=== PATIENT | female | born 1995 | race Caucasian/White ===

== ENCOUNTER → 2019-08-01 | Outpatient (CLI) | payer OTHER ==
[~2019-08-01] VITALS: Ht 165.1 cm; Wt 77.1 kg
[2019-08-01 14:53] LABS: BASO % 0 % (0-3); EOS # 0.1 x10^3/uL (0.0-0.7); EOS % 1 % (0-3); HEMATOCRIT 34.4 % (36.0-47.0); HEMOGLOBIN 11.7 g/dL (12.0-15.5); LYMPH % 19 % (24-48); MEAN CORPUSCULAR HEMOGLOBIN 28 pg (25-35); MEAN CORPUSCULAR HGB CONC 34 g/dL (31-37); MEAN CORPUSCULAR VOLUME 82 fL (79-100); MONO # 0.7 x10^3/uL (0.0-1.1); MONO % 6 % (0-9); NEUT # 7.8 x10^3/uL (1.8-7.7); NEUT % 74 % (31-73); PLATELET COUNT 235 x10^3/uL (140-400); RED CELL DISTRIBUTION WIDTH 13.6 % (11.5-14.5); WHITE BLOOD COUNT 10.6 x10^3/uL (4.0-11.0)
[2019-08-01 15:44] VITALS: BP 110/68
== END | disposition home or self-care (01) ==
LOC: LAB 14:22
PROVIDERS: ATTEND Obstetrics & Gynecology
DX: O09.92 Supervision of high risk pregnancy, unspecified, second trimester (principal); Z67.31 Type AB blood, Rh negative; Z3A.27 27 weeks gestation of pregnancy
CPT/HCPCS: 36415; 82950; 85025; 86850; 86900; 86901; 96372; J2791

== ENCOUNTER 2019-09-25 22:26 | Observation (INO) | payer OTHER ==
[2019-08-01 15:44] VITALS: BP 110/68
[2019-09-25] MEDS ORDERED: IV RINGERS,LACTATED 1000ML 1,000 ML IV PRN ×2 (22:30)
[2019-09-25] MEDS ORDERED: 0.9 % SODIUM CHLORIDE 10 ML DISP.SYRIN. IV PRN (22:30)
[2019-09-25] MEDS ORDERED: ACETAMINOPHEN 325 MG TABLET. PO PRN (22:30)
[2019-09-25 22:50] LABS: BILIRUBIN,URINE NEGATIVE (NEG); CLARITY,URINE HAZY; COLOR,URINE YELLOW; NITRITE,URINE NEGATIVE (NEG); PH,URINE 6.5 (<5.0-8.0); PROTEIN,URINE NEGATIVE (NEG-TRACE)
[2019-09-25 22:54] LABS: BACTERIA,URINE MANY /HPF (0-FEW); RBC,URINE OCC /HPF (0-2); SQUAMOUS EPITHELIAL CELL,UR MOD /LPF; WBC,URINE >40 /HPF (0-4)
[2019-09-25 23:01] LABS: BARBITURATES NEG (NEG); BENZODIAZEPINES NEG (NEG); CANNABINOIDS POS (NEG); COCAINE NEG (NEG); METHADONE NEG (NEG); OPIATES NEG (NEG); PHENCYCLIDINE NEG (NEG)
[2019-09-25 23:07] LABS: AMPHETAMINE/METHAMPHETAMINE NEG (NEG)
== END 2019-09-26 01:00 | disposition home or self-care (01) ==
LOC: 3 SO LND 22:26
PROVIDERS: ADMIT Obstetrics & Gynecology; ATTEND Obstetrics & Gynecology
DX: O36.8130 Decreased fetal movements, third trimester, not applicable or unspecified (principal); O26.893 Other specified pregnancy related conditions, third trimester; N89.8 Other specified noninflammatory disorders of vagina; R10.30 Lower abdominal pain, unspecified; Z3A.34 34 weeks gestation of pregnancy; Z79.899 Other long term (current) drug therapy
CPT/HCPCS: 80307; 81001; 87086; G0378; G0379

== ENCOUNTER 2019-10-22 03:07 | Inpatient (IN) | payer OTHER ==
[~2019-10-22] VITALS: Ht 167.6 cm; Wt 104.8 kg
[2019-10-22] MEDS ORDERED: IV RINGERS,LACTATED 1000ML 1,000 ML IV SCH ×4 (03:09→04:16)
[2019-10-22 03:40] LABS: BILIRUBIN,URINE NEGATIVE (NEG); CLARITY,URINE TURBID; COLOR,URINE YELLOW; NITRITE,URINE NEGATIVE (NEG); PROTEIN,URINE 100 mg/dL (NEG-TRACE); UROBILINOGEN,URINE 0.2 mg/dL (0.2 mg/dL)
[2019-10-22 03:45] LABS: BARBITURATES NEG (NEG); BENZODIAZEPINES NEG (NEG); CANNABINOIDS POS (NEG); COCAINE NEG (NEG); METHADONE NEG (NEG); OPIATES NEG (NEG); PHENCYCLIDINE NEG (NEG)
[2019-10-22 03:52] LABS: BACTERIA,URINE MODERATE /HPF (0-FEW); RBC,URINE 20-40 /HPF (0-2); SQUAMOUS EPITHELIAL CELL,UR MOD /LPF
[2019-10-22 03:53] LABS: AMPHETAMINE/METHAMPHETAMINE NEG (NEG)
[2019-10-22 04:12] LABS: AMNIO PT POSITIVE
[2019-10-22] MEDS ORDERED: 0.9 % SODIUM CHLORIDE 10 ML DISP.SYRIN. IV PRN ×4 (04:30→12:00)
[2019-10-22] MEDS ORDERED: BUTORPHANOL 2 MG/ML VIAL. IV PRN (04:30)
[2019-10-22] MEDS ORDERED: OXYTOCIN 30 UNIT/500 ML PREMIX 500 ML IV PRN ×7 (04:30→12:00)
[2019-10-22] MEDS ORDERED: TERBUTALINE 1 MG/ML VIAL. SQ PRN ×3 (04:30)
[2019-10-22] MEDS ORDERED: IBUPROFEN 400 MG TABLET. PO PRN ×2 (04:30)
[2019-10-22] MEDS ORDERED: LIDOCAINE 1% PF 30 ML VIAL. INJ PRN ×3 (04:30)
[2019-10-22] MEDS ORDERED: PENICILLIN G K 5,000,000 UNIT in IV DEXTROSE 5% 100ML 100 ML IV ONE (05:00)
[2019-10-22 05:13] VITALS: BP 123/83
[2019-10-22] MEDS ORDERED: fentaNYL PF VIAL 100 MCG/2 ML VIAL IVP PRN (05:30)
[2019-10-22] MEDS ORDERED: ONDANSETRON PF 4 MG/2 ML VIAL. IVP PRN (05:30)
[2019-10-22] MEDS ORDERED: OXYTOCIN PREMIX 30 UNIT/500 ML NS BAG. IV ONE (08:00)
[2019-10-22] MEDS ORDERED: PREN1TAB58 PO (08:31)
[2019-10-22] MEDS ORDERED: PENICILLIN G K 2,500,000 UNIT in IV DEXTROSE 5% 50 ML IV SCH (09:00)
[2019-10-22 09:41] LABS: BASO % 0 % (0-3); EOS # 0.1 x10^3/uL (0.0-0.7); EOS % 1 % (0-3); HEMATOCRIT 32.9 % (36.0-47.0); LYMPH # 2.7 x10^3/uL (1.0-4.8); LYMPH % 23 % (24-48); MEAN CORPUSCULAR HEMOGLOBIN 26 pg (25-35); MEAN CORPUSCULAR HGB CONC 34 g/dL (31-37); MEAN CORPUSCULAR VOLUME 79 fL (79-100); MONO # 0.8 x10^3/uL (0.0-1.1); MONO % 7 % (0-9); NEUT % 68 % (31-73); PLATELET COUNT 251 x10^3/uL (140-400); RED BLOOD COUNT 4.18 x10^6/uL (3.50-5.40); RED CELL DISTRIBUTION WIDTH 13.5 % (11.5-14.5); WHITE BLOOD COUNT 11.7 x10^3/uL (4.0-11.0)
--- NOTE | 2019-10-22 10:20 | PDOC1 ---
OB - History Hx of Present Care: Good Care Ultrasounds: Normal mid trimester US Obstetrical Complications: None Medical Complications: None Past Family/Social History * Past Medical, Surgical, Family and Obstetric Histories reviewed from chart. Rubella: Immune RPR/VDRL: Negative GBS Status: Negative HBsAG: Negative OB - Chief Complaint & HPI Date of Admission: Date of Admission: Oct 22, 2019 at 03:07 Chief Complaint/History : 1 Para: 0 EGA: 38 Reason for admission: active labor, rupture of membranes Admission Nurse Assessment Rev: Yes OB - Admission Exam Physical Exam Vitals: VS - Last 72 Hours, by Label Date Time Temp Pulse Resp B/P (MAP) Pulse Ox O2 Delivery O2 Flow Rate FiO2 10/22/19 09:10 20 Room Air 10/22/19 05:13 98.1 85 18 123/83 (96) Room Air 98.1 HEENT: Normal Heart: Regular Rate Lungs: Clear Abdomen: Gravid, Non tender, Soft Extremities: Edema Reflexes: Normal Cervical Dilatation: 3cm Effacement: 75% Station: -3 Membranes: Ruptured Amniotic Fluid: Clear Heart Rate: Normal Accelerations: Accelerations Present Decelerations: No decelerations Contractions on Admission: >10 Minutes Apart Intensity: Mild Text A: 38 wks IUP SROM P: Admit labor management. KAROLINA KNOWLES Jr, MD Oct 22, 2019 10:20
[2019-10-22] MEDS ORDERED: ROPIVacaine 0.2% PF 10 ML VIAL. ONE ×2 (10:26→11:00)
[2019-10-22] MEDS ORDERED: L&D EPIDURAL SYRINGE 50 ML ONE (10:27)
[2019-10-22] MEDS ORDERED: L&D EPIDURAL 50 ML SYRINGE. ONE (11:00)
--- NOTE | 2019-10-22 11:47 | PDOC ---
VAGINAL DELIVERY DATE DATE: 10/22/19 TIME: 11:46 : 1 Para: 1 EGA: 38 VAGINAL DELIVERY: VTX VACCUM ASSISTED: No PLACENTA: Spontaneous 8/9 SEX: Male WEIGHT Weight [ 2965 gm] Nuchal Cord: Yes, Times 1 Amniotic Fluid: Clear PAIN: Epidural EPISIOTOMY: No EXTENSION: No EBL 300 ml COMPLICATIONS none CONDITION pt. stable Signs of Intrauterine Infectio: None Shoulder Dystocia: No KAROLINA KNOWLES Jr, MD Oct 22, 2019 11:47
[2019-10-22] MEDS ORDERED: oxyCODONE/APAP 5/325 1 TAB TABLET PO PRN (12:00)
[2019-10-22] MEDS ORDERED: MAGNESIUM HYDROXIDE 2,400 MG/30 ML ORAL.SUSP. PO PRN (12:00)
[2019-10-22] MEDS ORDERED: diphenhydrAMINE HCL 25 MG CAPSULE PO PRN (12:00)
[2019-10-22] MEDS ORDERED: ACETAMINOPHEN 325 MG TABLET. PO PRN (12:00)
[2019-10-22] MEDS ORDERED: MAG HYDROX/ALUMINUM HYD/SIMETH 30 ML ORAL.SUSP PO PRN (12:00)
[2019-10-22] MEDS ORDERED: ZOLPIDEM 5 MG TABLET. PO PRN (12:00)
[2019-10-22] MEDS ORDERED: HYDROCORTISONE 1% TOPICAL OINTMENT 30GM TUBE. TP PRN (12:00)
[2019-10-22] MEDS ORDERED: PHENYLEPH/MINERAL OIL/PETROLAT RECTAL OINTMENT TUBE. RC PRN (12:00)
[2019-10-22] MEDS ORDERED: DOCUSATE SODIUM 100 MG CAPSULE. PO PRN (12:00)
[2019-10-22] MEDS ORDERED: BENZOCAINE 20% TOPICAL AEROSOL SPRAY 57GM CAN. TP PRN (12:00)
[2019-10-22] MEDS ORDERED: TDaP (Adacel) per PROTOCOL. MC PRN (12:00)
[2019-10-22] MEDS ORDERED: SIMETHICONE 80 MG TAB.CHEW PO PRN (12:00)
[2019-10-22] MEDS ORDERED: MMR per PROTOCOL. MC PRN (12:00)
[2019-10-22] MEDS: IBUPROFEN 400 MG TABLET. PO PRN (14:35)
[2019-10-22 15:00] VITALS: BP 115/67
[2019-10-22 16:00] VITALS: BP 129/57
[2019-10-22 23:00] VITALS: BP 109/61
[2019-10-23 05:20] VITALS: BP 112/75
[2019-10-23] MEDS: IBUPROFEN 400 MG TABLET. PO PRN (05:51)
[2019-10-23 07:48] LABS: BASO % 0 % (0-3); EOS # 0.1 x10^3/uL (0.0-0.7); EOS % 1 % (0-3); HEMATOCRIT 27.8 % (36.0-47.0); HEMOGLOBIN 9.5 g/dL (12.0-15.5); LYMPH # 2.1 x10^3/uL (1.0-4.8); LYMPH % 21 % (24-48); MEAN CORPUSCULAR HEMOGLOBIN 27 pg (25-35); MEAN CORPUSCULAR HGB CONC 34 g/dL (31-37); MEAN CORPUSCULAR VOLUME 79 fL (79-100); MONO # 0.6 x10^3/uL (0.0-1.1); MONO % 6 % (0-9); NEUT # 7.3 x10^3/uL (1.8-7.7); NEUT % 72 % (31-73); PLATELET COUNT 182 x10^3/uL (140-400); RED BLOOD COUNT 3.54 x10^6/uL (3.50-5.40); RED CELL DISTRIBUTION WIDTH 13.5 % (11.5-14.5); WHITE BLOOD COUNT 10.2 x10^3/uL (4.0-11.0)
[2019-10-23] MEDS ORDERED: FERROUS SULFATE 325 MG TABLET. PO SCH (08:00)
[2019-10-23] MEDS ORDERED: DIPH,PERTUSS(ACELL),TET VAC/PF 0.5 ML SYRINGE. VAX IM ONE (09:00)
[2019-10-23] MEDS ORDERED: MULTIVITAMIN with MINERAL TABLET. PO SCH (09:00)
[2019-10-23] MEDS ORDERED: MEASLES, MUMPS & RUBELLA VACC 0.5 ML VIAL. VAX SQ ONE (09:00)
--- NOTE | 2019-10-23 11:16 | PDOC3 ---
OB DISCHARGE SUMMARY DATE OF ADMISSION: 10/22/19 DATE OF DISCHARGE: 10/23/19 REASON FOR ADMISSION: Onset of labor INTRAPARTUM PROCEDURES: Spontanous Vag Deliv DISCHARGE DIAGNOSIS: Term Delivered DISCHARGE INFORMATION: Activity (ad ladarius), Diet (regular), Instructions (pelvic rest x 6 wks) HOSPITAL COURSE Term gestation delivered vaginally without complications. KAROLINA KNOWLES Jr, MD Oct 23, 2019 11:16
[2019-10-23] MEDS ORDERED: IBUP-1027 PO (11:17)
[2019-10-23 11:18] VITALS: BP 112/74
--- NOTE | 2019-10-23 11:18 | DISCH ---
DISCHARGE INSTRUCTIONS Condition on Discharge Condition on Discharge: Stable Activity After Discharge Activity Instructions for Disc: Activity as tolerated Driving Instructions after Dis: Do not drive today Diet after Discharge Diet after Discharge: Regular Contacting the DRChrissy after DC Call your doctor for: Concerns you may have Follow-Up Follow up with: Dr. Samuels in 6 wks KAROLINA SAMUELS Jr, MD Oct 23, 2019 11:18
--- NOTE | 2019-10-23 16:20 | NUR ---
Discharge instructions given to pt. Pt verbalized understanding. Pt discharged home with .
[2019-10-23 16:35] VITALS: BP 116/79
== END 2019-10-23 17:05 | disposition home or self-care (01) | DRG 807 ==
LOC: 3 SO LND 03:07 → OBSVTOIN 03:07 → 3 SO LND 03:16 → 3 NORTH 15:00
PROVIDERS: ADMIT Obstetrics & Gynecology; ATTEND Obstetrics & Gynecology
PROC: 10E0XZZ Delivery of Products of Conception, External Approach (ICD-10-PCS; principal; 2019-10-22)
PROC: 3E0R3BZ Introduction of Anesthetic Agent into Spinal Canal, Percutaneous Approach (ICD-10-PCS; 2019-10-22)
PROC: 00HU33Z Insertion of Infusion Device into Spinal Canal, Percutaneous Approach (ICD-10-PCS; 2019-10-22)
DX: O42.92 Full-term premature rupture of membranes, unspecified as to length of time between rupture and onset of labor (principal); Z37.0 Single live birth; O69.81X0 Labor and delivery complicated by cord around neck, without compression, not applicable or unspecified; Z3A.38 38 weeks gestation of pregnancy
CPT/HCPCS: 36415; 80307; 81001; 84112; 85025; 85461; 86592; 86850; 86900; 86901; 87086; 87653; 90471; 90707; 90715; J2405; J2540; J2590; J2791; J2795; J3010; J7060; J7120; U0003; G0378